=== PATIENT | female | born 1950 | race American Indian/Alaskan Native ===

== ENCOUNTER 2018-09-25 11:33 | Emergency (ER) | payer OTHER ==
[2018-09-25] MEDS ORDERED: Lidocaine 5% Patch TD STA (12:17)
--- NOTE | 2018-09-25 12:17 | ED PDOC ---
Arrival/HPI - General Chief Complaint: Hip Pain Time Seen by Provider: 09/25/18 11:38 Historian: Patient - History of Present Illness Narrative History of Present Illness (Text): 68 y/o female with no significant PMH presents to the ED biba c/o neck pain and right lower extremity pain s/p fall 1 hour [employer]. 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 Pt was unwilling to ambulate after the injury but is able to walk and bear weight here in ED. Unsure of head strike but denies LOC. Has not taken any medication for pain. Denies numbness, weakness, paresthesias, headache, vision changes, dizziness, abdominal pain, nausea, vomiting, incontinence, saddle anesthesia, or any other associated complaints. Past Medical History - Provider Review Nursing Documentation Reviewed: Yes - Cardiac Hx Cardiac Disorders: No - Pulmonary Hx Respiratory Disorders: No - Neurological Hx Neurological Disorder: No - HEENT Hx HEENT Disorder: No - Renal Hx Renal Disorder: No - Endocrine/Metabolic Hx Endocrine Disorders: No - Hematological/Oncological Hx Blood Disorders: No - Integumentary Hx Dermatological Disorder: No - Musculoskeletal/Rheumatological Hx Musculoskeletal Disorders: Yes Hx Arthritis: Yes - Gastrointestinal Hx Gastrointestinal Disorders: No - Genitourinary/Gynecological Hx Genitourinary Disorders: No - Psychiatric Hx Psychophysiologic Disorder: No Hx Substance Use: No - Surgical History Hx Section: Yes Family/Social History - Physician Review Nursing Documentation Reviewed: Yes Family/Social History: No Known Family HX Smoking Status: Never Smoked Hx Alcohol Use: Yes Frequency of alcohol use: Socially Hx Substance Use: No Allergies/Home Meds Allergies/Adverse Reactions: Allergies No Known Allergies Allergy (Verified 09/25/18 11:46) Review of Systems - Review of Systems Constitutional: Normal. absent: Fevers Eyes: Normal. absent: Vision Changes Respiratory: Normal. absent: SOB, Cough Cardiovascular: Normal. absent: Chest Pain, Palpitations Gastrointestinal: Normal. absent: Abdominal Pain, Nausea, Vomiting Genitourinary Female: Normal. absent: Dysuria, Frequency Musculoskeletal: Neck Pain, Other (right leg pain). absent: Back Pain Skin: Normal. absent: Rash, Laceration, Cellulitis Neurological: Normal. absent: Headache, Dizziness, Focal Weakness, Facial Droop, Disequilibrium Endocrine: Normal Hemo/Lymphatic: Normal Psychiatric: Normal Physical Exam Vital Signs Reviewed: Yes Temperature: Afebrile Blood Pressure: Normal Pulse: Regular Respiratory Rate: Normal Appearance: Positive for: Well-Appearing, Non-Toxic, Comfortable Pain Distress: None Mental Status: Positive for: Alert and Oriented X 3 - Systems Exam Head: Present: Atraumatic, Normocephalic Pupils: Present: PERRL Extroacular Muscles: Present: EOMI Conjunctiva: Present: Normal Mouth: Present: Moist Mucous Membranes Neck: Present: Normal Range of Motion, MIDLINE TENDERNESS, Paraspinal Tenderness (bilateral). No: Meningeal Signs Respiratory/Chest: Present: Clear to Auscultation, Good Air Exchange. No: Respiratory Distress, Accessory Muscle Use Cardiovascular: Present: Regular Rate and Rhythm, Normal S1, S2, Peripheal Pulses Present Abdomen: Present: Normal Bowel Sounds. No: Tenderness, Distention, Peritoneal Signs, Rebound, Guarding Back: Present: Normal Inspection, Midline Tenderness, Paraspinal Tenderness (left thoracic, bilateral lumbar; mild throughout). No: CVA Tenderness Upper Extremity: Present: Normal Inspection, Normal ROM, NORMAL PULSES, Neurovascularly Intact, Capillary Refill < 2s. No: Cyanosis, Edema, Tenderness, Swelling, Temperature Abnormalties Lower Extremity: Present: Normal Inspection, NORMAL PULSES, Normal ROM, Tenderness (right lateral ankle, anterior knee, lateral hip), Neurovascularly Intact, Capillary Refill < 2 s. No: Edema, Swelling, Deformity, Temperature A bnormalties Neurological: Present: GCS=15, CN II-XII Intact, Speech Normal, Motor Func Grossly Intact, Normal Sensory Function, Gait Normal (able to ambulate and bear weight per baseline) Skin: Present: Warm, Dry, Normal Color. No: Rashes Psychiatric: Present: Alert, Oriented x 3, Normal Insight, Normal Concentration, Normal Affect, Normal Mood Medical Decision Making ED Course and Treatment: Initial Plan: * Tylenol * Lidoderm patch * CT Head * CT Cervical Spine * Right Hip XR * Right Knee XR * Right Ankle XR Patient reports resolution of pain with medications Imaging is negative for acute pathology. Pt able to ambulate without difficulty here in ED Advised PMD and orthopedic followup Diagnostic testing results and plan of care discussed with patient. Strict instructions given regarding prescription use, importance of followup, and signs/symptoms to return to ER including or worsening pain, numbness, weakness, paresthesias, headache, or any other new/worsening symptoms. Pt verbalized understanding of discussion. Patient is A&Ox3, ambulating with steady gait, with vital signs stable for discharge. - RAD Interpretation Narrative RAD Interpretations (Text): 09/25/18 13:[address]: FINDINGS: HEMORRHAGE: No intracranial hemorrhage. BRAIN: No mass effect or edema. No atrophy or chronic microvascular ischemic changes. VENTRICLES: Unremarkable. No hydrocephalus. CALVARIUM: Unremarkable. PARANASAL SINUSES: Unremarkable as visualized. No significant inflammatory changes. MASTOID AIR CELLS: Unremarkable as visualized. No inflammatory changes. OTHER FINDINGS: None. IMPRESSION: No acute intracranial findings Cervical Spine CT: FINDINGS: VERTEBRAE: There is straightening of the cervical spine. There is no evidence of fracture DISCS/SPINAL CANAL/NEURAL FORAMINA: Multilevel degenerative changes are seen with foraminal stenosis but no central stenosis there is a calcified central disc protrusion at C4-5. discs heights are grossly preserved. PARASPINAL SOFT TISSUES: Unremarkable. OTHER FINDINGS: None. IMPRESSION: No acute findings Lumbar Spine XR FINDINGS: BONES: There is anterolisthesis of L4 DISC SPACES: Multilevel disc degeneration is seen. Facet arthropathy at L4-5 and L5-S1 OTHER FINDINGS: None. IMPRESSION: Degenerative changes. No acute findings Hip XR FINDINGS: BONES: Normal. No fracture. JOINTS: Normal. SOFT TISSUES: Normal. OTHER FINDINGS: None. IMPRESSION: Negative study Knee XR FINDINGS: BONES: Normal. No fracture. JOINTS: Severe degenerative changes are seen with narrowing of the joint spaces. There is bony sclerosis and osteophyte formation in all 3 compartments of the knee. JOINT EFFUSION: None. OTHER FINDINGS: None. IMPRESSION: Severe osteoarthritis Ankle XR FINDINGS: BONES: Normal. No fracture. JOINTS: Normal. No osteoarthritis. Ankle mortise maintained. Talar dome intact SOFT TISSUES: Normal. OTHER FINDINGS: None. IMPRESSION: Normal right ankle radiographs. Radiology Orders: 09/25/18 12:04 ANKLE RIGHT 3 VIEWS ROUTINE [RAD] Stat HIP MIN 4V W/ PELVIS RT [RAD] Stat KNEE RIGHT 2 VIEWS (AP & LAT) [RAD] Stat 09/25/18 12:06 LS SPINE WITH OBL > 18 YRS OLD [RAD] Stat 09/25/18 12:17 CERVICAL SPINE W/O CONTRAST [CT] Stat HEAD W/O CONTRAST [CT] Stat Boiler Tube Blower: Radiologist Disposition/Present on Arrival - Present on Arrival Any Indicators Present on Arrival: No History of DVT/PE: No History of Uncontrolled Diabetes: No Urinary Catheter: No History of Decub. Ulcer: No History Surgical Site Infection Following: None - Disposition Have Diagnosis and Disposition been Completed?: Yes Diagnosis: Fall, Pain of right lower extremity Disposition: HOME/ ROUTINE Disposition Time: 14:00 Patient Plan: Discharge Condition: IMPROVED Discharge Instructions (ExitCare): Muscle and Bone Pain (DC), Closed Head Injury (DC) Additional Instructions: Tylenol as needed for pain Lidoderm patches daily, 12 hours on, 12 hours off Followup with primary doctors within 2 days Return to ER with any new/worsening symptoms Prescriptions: Lidocaine 5% [Lidoderm] 1 ea TD DAILY PRN #30 patch PRN Reason: Pain, Mild (1-3) Referrals: [facility] [place] [Outside] - Follow up with primary Vinnie Ramirez III, MD [Medical Doctor] - Follow up with primary Loreta Moody MD [Medical Doctor] - Follow up with primary Forms: [facility] [facility] (Hebrew), WORK NOTE
--- NOTE | 2018-09-25 13:09 | CT ---
Date of service: 09/25/2018 PROCEDURE: CT HEAD WITHOUT CONTRAST. HISTORY: headache COMPARISON: None available. TECHNIQUE: Axial computed tomography images were obtained through the head/brain without intravenous contrast. Radiation dose: Total exam DLP = 885.09 mGy-cm. This CT exam was performed using one or more of the following dose reduction techniques: Automated exposure control, adjustment of the mA and/or kV according to patient size, and/or use of iterative reconstruction technique. FINDINGS: HEMORRHAGE: No intracranial hemorrhage. BRAIN: No mass effect or edema. No atrophy or chronic microvascular ischemic changes. VENTRICLES: Unremarkable. No hydrocephalus. CALVARIUM: Unremarkable. PARANASAL SINUSES: Unremarkable as visualized. No significant inflammatory changes. MASTOID AIR CELLS: Unremarkable as visualized. No inflammatory changes. OTHER FINDINGS: None. IMPRESSION: No acute intracranial findings
--- NOTE | 2018-09-25 13:21 | CT ---
Date of service: 09/25/2018 PROCEDURE: CT Cervical Spine without contrast HISTORY: neck pain COMPARISON: None available. TECHNIQUE: Axial computed tomography images were obtained of the cervical spine without the use of intravenous contrast. Coronal and sagittal reformatted images were created and reviewed. Radiation dose: Total exam DLP = 554.17 mGy-cm. This CT exam was performed using one or more of the following dose reduction techniques: Automated exposure control, adjustment of the mA and/or kV according to patient size, and/or use of iterative reconstruction technique. FINDINGS: VERTEBRAE: There is straightening of the cervical spine. There is no evidence of fracture DISCS/SPINAL CANAL/NEURAL FORAMINA: Multilevel degenerative changes are seen with foraminal stenosis but no central stenosis there is a calcified central disc protrusion at C4-5. discs heights are grossly preserved. PARASPINAL SOFT TISSUES: Unremarkable. OTHER FINDINGS: None. IMPRESSION: No acute findings
--- NOTE | 2018-09-25 13:40 | RAD ---
Date of service: 09/25/2018 PROCEDURE: Radiographs of the Lumbar Spine. HISTORY: fall COMPARISON: No prior. TECHNIQUE: Four views obtained. FINDINGS: BONES: There is anterolisthesis of L4 DISC SPACES: Multilevel disc degeneration is seen. Facet arthropathy at L4-5 and L5-S1 OTHER FINDINGS: None. IMPRESSION: Degenerative changes. No acute findings
--- NOTE | 2018-09-25 13:42 | RAD ---
Date of service: 09/25/2018 PROCEDURE: Right Knee Radiographs. HISTORY: fall COMPARISON: None. TECHNIQUE: 2 views obtained. FINDINGS: BONES: Normal. No fracture. JOINTS: Severe degenerative changes are seen with narrowing of the joint spaces. There is bony sclerosis and osteophyte formation in all 3 compartments of the knee. JOINT EFFUSION: None. OTHER FINDINGS: None. IMPRESSION: Severe osteoarthritis
--- NOTE | 2018-09-25 13:43 | RAD ---
PROCEDURE: Right Hip and pelvis radiographs. HISTORY: fall COMPARISON: None. TECHNIQUE: 2 views obtained. FINDINGS: BONES: Normal. No fracture. JOINTS: Normal. SOFT TISSUES: Normal. OTHER FINDINGS: None. IMPRESSION: Negative study
--- NOTE | 2018-09-25 13:43 | RAD ---
Date of service: 09/25/2018 PROCEDURE: Right Ankle Radiographs. HISTORY: fall COMPARISON: None available. TECHNIQUE: 3 views obtained. FINDINGS: BONES: Normal. No fracture. JOINTS: Normal. No osteoarthritis. Ankle mortise maintained. Talar dome intact SOFT TISSUES: Normal. OTHER FINDINGS: None. IMPRESSION: Normal right ankle radiographs.
[2018-09-25 14:00] VITALS: RESP 18; O2SAT 100
[2018-09-25 14:29] VITALS: BP 110/71; PULSE 70; TEMP 98.2
== END 2018-09-25 14:28 | disposition home or self-care (01) ==
LOC: ED 11:33 → MERGE 11:33 → ED 14:28
DX: M79.604 Pain in right leg (principal)
CPT/HCPCS: 70450; 72110; 72125; 73503; 73560; 73610; 96372; 99283; J1885